=== PATIENT | male | born 1990 ===

== ENCOUNTER 2020-06-03 03:46 | Emergency (ER) | payer SELFPAY ==
[~2020-06-03] VITALS: Ht 180.3 cm; Wt 69.4 kg
[2020-06-03 03:53] VITALS: BP 128/75
== END 2020-06-03 04:03 ==
LOC: ED 04:01
DX: L53.9 Erythematous condition, unspecified (principal); Z53.21 Procedure and treatment not carried out due to patient leaving prior to being seen by health care provider